=== PATIENT | male | born 1990 | race Caucasian/White ===

== ENCOUNTER 2019-06-16 20:22 | Emergency (ER) | payer MEDICAID ==
[~2019-06-16] VITALS: Ht 185.4 cm; Wt 81.6 kg
--- NOTE | 2019-06-16 21:09 | NUR ---
ED Nurse Note: Walk-in patient presents with complaints of headache with history of migraine.
[2019-06-16 21:13] VITALS: BP 134/76
[2019-06-16] MEDS ORDERED: HYDROmorphone 1mg/ml Carpuject ONE (21:23)
[2019-06-16] MEDS ORDERED: HYDROcodone/Acetamin 5/325 tab ORAL ONE (21:45)
[2019-06-16] MEDS ORDERED: IMITREX50 MG ORAL (21:45)
--- NOTE | 2019-06-16 21:45 | Emergency Room Report ---
History of Present Illness General Chief Complaint: Headache Source: Patient Present Illness HPI Is a 28-year-old male with a history of migraine. Usually well controlled with amitriptyline at night. He presents with chief complaint of headache that has been ongoing for about weeks. Throbbing in nature. Elavil helps but not completely. He just started a new job and under a lot of stress. No fever chills but no focal deficit. Pain is throbbing in nature. Diffuse in nature. Nothing made it better. Nothing made it worse. Denies any other complaint. Allergies: Coded Allergies: No Known Allergies (Unverified , 06/16/19) Patient History Past Medical History: see triage record, old chart reviewed Past Surgical History: none Pertinent Family History: none Social History: Denies: smoking Immunizations: other Reviewed Nursing Documentation: PMH: Agreed; PSxH: Agreed Nursing Documentation-PMH Past Medical History: No Stated History Review of Systems Eye: Denies: eye pain, blurred vision ENT: Denies: ear pain, nose congestion, throat swelling Respiratory: Denies: cough, shortness of breath Cardiovascular: Denies: chest pain, palpitations Gastrointestinal: Denies: abdominal pain, diarrhea, nausea, vomiting Musculoskeletal: Denies: back pain, joint pain Skin: Denies: rash Neurological: Reports: headache; Denies: numbness Endocrine: Denies: increased thirst, increased urine Hematologic/Lymphatic: Denies: easy bruising All Other Systems: negative except mentioned in HPI Physical Exam Vital Signs Date Time Temp Pulse Resp B/P (MAP) Pulse Ox O2 Delivery O2 Flow Rate FiO2 06/16/19 21:09 82 18 99 Room Air 06/16/19 21:13 98.4 134/76 Vitals normal Sp02 EP Interpretation: reviewed, normal General Appearance: well appearing, no apparent distress, alert Head: normocephalic, atraumatic Eyes: bilateral eye PERRL, bilateral eye EOMI ENT: hearing grossly normal, normal pharynx Neck: full range of motion, supple, no meningismus Respiratory: chest non-tender, lungs clear, normal breath sounds Cardiovascular #1: regular rate, rhythm, no murmur Gastrointestinal: normal bowel sounds, non tender, no mass, no organomegaly, no bruit, non-distended Musculoskeletal: back normal, gait/station normal, normal range of motion Psychiatric: mood/affect normal Medical Decision Making Diagnostic Impression: Primary Impression: Headache Qualified Codes: R51 - Headache ER Course Patient with headache. No evidence of any focal deficit no evidence of meningitis, sepsis, bleed or neoplastic process. Will discharge home. Last Vital Signs Date Time Temp Pulse Resp B/P (MAP) Pulse Ox O2 Delivery O2 Flow Rate FiO2 06/16/19 21:13 98.4 97 18 134/76 99 Room Air Status: improved Disposition: HOME, SELF-CARE Condition: Stable Scripts Sumatriptan Succinate* (IMITREX*) 50 Mg Tablet 50 MG ORAL DAILY PRN MIGRAINE, #30 TAB Prov: Tong Lutz MD 06/16/19 Patient Instructions: Migraine Headache Additional Instructions: Follow-up with your doctor in 7 days. If not better, may need referral to see a migraine specialist. Return if worse. Tong Lutz MD Jun 16, 2019 21:45
--- NOTE | 2019-06-16 21:54 | NUR ---
ED Nurse Note: Patient cleared for discharge by ERMD, patient verbalized understanding of discharge instructions, departed with all belongings.
== END 2019-06-16 21:54 | disposition home or self-care (01) ==
LOC: EDSEX 20:22 → EMR 21:38
DX: R51 Headache (principal)
CPT/HCPCS: 99282; J2405

== ENCOUNTER 2019-06-21 00:56 | Emergency (ER) | payer MEDICAID ==
[~2019-06-21] VITALS: Ht 182.9 cm; Wt 81.6 kg
[~2019-06-21 00:56] MED LIST: IMITREX50 MG ORAL
[2019-06-21 01:07] VITALS: BP 127/73
[2019-06-21] MEDS ORDERED: Dexamethasone 4mg/ml vial IVP ONE (01:15)
[2019-06-21] MEDS ORDERED: Metoclopramide 10mg/2ml Inj IVP ONE (01:15)
[2019-06-21] MEDS ORDERED: Ketorolac 30mg Inj IV ONE (01:15)
[2019-06-21] MEDS ORDERED: DiphenhydrAMINE 50mg/ml Inj IVP ONE (01:15)
[2019-06-21] MEDS ORDERED: TRAMADOL HCL50 MG ORAL (01:20)
--- NOTE | 2019-06-21 01:20 | Emergency Room Report ---
History of Present Illness General Chief Complaint: Headache Source: Patient Present Illness HPI This is a 28-year-old male with a history of migraine. He is been having a migraine for more than a month. I saw him a few days ago and prescribed Imitrex. He said is not helping. He started a new job and a lot more stress. No nausea no vomiting. No fever chills. Pain is throbbing in nature. Diffuse. He has an appointment with his doctor tomorrow but unable to sleep because of the headache. He tried melatonin without any relief. Allergies: Coded Allergies: No Known Allergies (Unverified , 06/16/19) Patient History Past Medical History: see triage record, old chart reviewed Past Surgical History: none Pertinent Family History: none Social History: Denies: smoking Immunizations: other Reviewed Nursing Documentation: PMH: Agreed; PSxH: Agreed Nursing Documentation-PMH Past Medical History: No Stated History Review of Systems Eye: Denies: eye pain, blurred vision ENT: Denies: ear pain, nose congestion, throat swelling Respiratory: Denies: cough, shortness of breath Cardiovascular: Denies: chest pain, palpitations Gastrointestinal: Denies: abdominal pain, diarrhea, nausea, vomiting Musculoskeletal: Denies: back pain, joint pain Skin: Denies: rash Neurological: Reports: headache; Denies: numbness Endocrine: Denies: increased thirst, increased urine Hematologic/Lymphatic: Denies: easy bruising All Other Systems: negative except mentioned in HPI Physical Exam Vital Signs Date Time Temp Pulse Resp B/P (MAP) Pulse Ox O2 Delivery O2 Flow Rate FiO2 06/21/19 00:58 98.1 98 16 130/73 (92) 100 Room Air Vitals normal Sp02 EP Interpretation: reviewed, normal General Appearance: well appearing, no apparent distress, alert Head: normocephalic, atraumatic Eyes: bilateral eye PERRL, bilateral eye EOMI ENT: hearing grossly normal, normal pharynx Neck: full range of motion, supple, no meningismus Respiratory: chest non-tender, lungs clear, normal breath sounds Cardiovascular #1: regular rate, rhythm, no murmur Gastrointestinal: normal bowel sounds, non tender, no mass, no organomegaly, no bruit, non-distended Musculoskeletal: back normal, gait/station normal, normal range of motion Psychiatric: mood/affect normal Medical Decision Making Diagnostic Impression: Primary Impression: Headache Qualified Codes: R51 - Headache ER Course Patient with chronic headache. No evidence of meningitis, sepsis, bleed or neoplastic process. Last Vital Signs Date Time Temp Pulse Resp B/P (MAP) Pulse Ox O2 Delivery O2 Flow Rate FiO2 06/21/19 01:07 98.0 84 18 127/73 100 Room Air Status: improved Disposition: HOME, SELF-CARE Condition: Stable Scripts Tramadol Hcl* (ULTRAM*) 50 Mg Tablet 50 MG ORAL Q6H PRN for For Pain, #10 TAB 0 Refills Prov: Tong Lutz MD 06/21/19 Patient Instructions: Migraine Headache Additional Instructions: Follow-up with your Dr tomorrow as scheduled. Return if worse. Tong Lutz MD Jun 21, 2019 01:20
[2019-06-21 01:27] VITALS: BP 120/70
== END 2019-06-21 01:27 | disposition home or self-care (01) ==
LOC: EMR 01:08
DX: R51 Headache (principal)
CPT/HCPCS: 96374; 96375; 99284; J1100; J1200; J1885; J2765